=== PATIENT | male | born 2005 | race Caucasian/White ===

== ENCOUNTER 2023-11-25 12:30 | Emergency (ER) | payer BC, OTHER ==
[2023-11-25 12:35] VITALS: BP 136/80; PULSE 88
[2023-11-25 13:03] LABS: BASOPHILS ABSOLUTE AUTO 0.02 K/uL (0.00-0.20); BASOPHILS PERCENT AUTO 0.5 % (0.0-2.0); EOSINOPHILS ABSOLUTE AUTO 0.01 K/uL (0.00-0.50); EOSINOPHILS PERCENT AUTO 0.2 % (0.0-5.0); HEMOGLOBIN 15.3 g/dL (13.1-16.8); LYMPHOCYTES ABSOLUTE AUTO 1.23 K/uL (0.50-3.50); LYMPHOCYTES PERCENT AUTO 28.9 % (10.0-50.0); MEAN CORPUSCULAR HEMOGLOBIN 30.2 pg (28.2-33.3); MEAN CORPUSCULAR VOLUME 88.8 fL (84.0-98.0); MONOCYTES ABSOLUTE AUTO 1.08 K/uL (0.00-1.00); MONOCYTES PERCENT AUTO 25.4 % (2.0-14.0); NEUTROPHILS ABSOLUTE AUTO 1.91 K/uL (1.40-7.00); PLATELET COUNT,PLT 140 K/uL (150-350); RED BLOOD CELL COUNT 5.07 M/uL (4.33-5.41); RED CELL DISTRIBUTION WIDTH 13.4 % (11.2-14.1); WHITE BLOOD CELL COUNT,WBC 4.3 K/uL (4.0-10.2)
[2023-11-25 13:16] LABS: ALBUMIN 4.4 g/dL (3.4-5.0); ANION GAP 10.5 meq/L (7-15); BILIRUBIN TOTAL 0.4 mg/dL (0.2-1.0); CALCIUM 9.1 mg/dL (8.5-10.1); CARBON DIOXIDE,CO2 27.5 mmol/L (21.0-32.0); CREATININE 1.09 mg/dL (0.51-1.17); EST CRCL DRUG DOSING (CG) 108.89 mL/min; POTASSIUM,K 4.4 mmol/L (3.5-5.1); PROTEIN TOTAL,TP 7.9 g/dL (6.4-8.2)
[2023-11-25 13:36] LABS: INFLUENZA A NAA NEGATIVE (NEGATIVE); INFLUENZA B NAA NEGATIVE (NEGATIVE); RESPIRATORY SYNCYTIAL VIR NAA NEGATIVE (NEGATIVE)
[2023-11-25] MEDS ORDERED: Sodium Chloride 0.9% 1,000 ML IV ONE (13:37)
[2023-11-25] MEDS ORDERED: Ondansetron 4 MG/2 ML SDV IVPUSH ONE (13:37)
[2023-11-25] MEDS ORDERED: Sodium Chloride 0.9% 10 ML Syringe FLUSH PRN (13:37)
[2023-11-25 13:42] LABS: CORONAVIRUS COVID-19 NAA POSITIVE (NEGATIVE)
== END 2023-11-25 14:15 | disposition left against medical advice (07) ==
LOC: LL.ED 12:30
DX: U07.1 COVID-19 (principal)
CPT/HCPCS: 0241U; 36415; 80053; 85025; 99283